=== PATIENT | male | born 1940 | race Caucasian/White ===

== ENCOUNTER 2017-09-05 20:26 | Observation (INO) | payer MEDICARE, OTHER ==
[~2017-09-05] VITALS: Ht 169.5 cm; Wt 50.8 kg
[~2017-09-05 20:26] MED LIST: ACIP20TA19 PO; ADVA250A INH; AGGR20025 PO; FERR324T4 PO; PRAV40TA PO; bystolic PO
[2017-09-05 20:29] VITALS: BP 151/60; PULSE 73; RESP 18; TEMP 98.3; O2SAT 96
[2017-09-05 20:40] VITALS: O2SAT 95
--- NOTE | 2017-09-05 21:04 | PD ---
HPI Chief Complaint: Respiratory Symptoms Time Seen by Provider: 20:55 Travel History International Travel<30 days: No Contact w/Intl Traveler<30days: No Traveled to known affect area: No History of Present Illness HPI 77-year-old male came to the emergency room brought by EMS for shortness of breath and chest pain on and off since this morning. Patient has history of COPD as well as coronary artery disease. Patient had a CABG about 5-6 years ago. He continues to be a smoker. Patient took his breathing treatments in the morning and felt little better but then the pain and shortness of breath came back in the afternoon. Patient describes this pain on the left side of his chest without any radiation. No aggravating or relieving factors has been identified. Pain is like a pressure. His cellular equipment installer is Dr. Ritchie. Patient usually goes to [facility] a new [place] but he was told that the hospital was very busy and hence he was brought to this emergency room. Currently patient is chest pain-free and vital signs are stable. He does not appear to be in significant shortness of breath. Patient drinks 2 beers every night. Patient took aspirin today but does not know how much. PFSH Past Medical History Narrative Medical List of his past medical, surgical, social and family history reviewed from the nursing note. Blood Disorders: Yes (DUE TO BLOOD THINNER) Cancer: No Cardiovascular Problems: Yes High Cholesterol: Yes Cerebrovascular Accident: Yes (SEVERAL) Diabetes: No Endocrine: No Gastrointestinal Disorders: Yes Genitourinary: No Hepatitis: No Hiatal Hernia: No Hypertension: Yes Immune Disorder: No Implanted Vascular Access Dvce: Yes (pacemaker) Medical other: Yes (arthritis) Musculoskeletal: Yes Neurologic: Yes Psychiatric: No Reproductive: No Respiratory: Yes (DENIES PROBS BUT TAKES NEBULIZERS) Thyroid Disease: No Ulcer: Yes Tetanus Vaccination: > 5 Years Influenza Vaccination: No Past Surgical History Cardiac Surgery: Yes (Quad bypass; pacemaker) Eye Surgery: Yes (LEFT CATARACT EXTRACT) Pacemaker: Yes Other Surgery: Yes Social History Alcohol Use: Yes (daily) Tobacco Use: Yes (2-3 ppd) Substance Use: No Allergies-Medications (Allergen,Severity, Reaction): Coded Allergies: No Known Allergies (Verified Allergy, Unknown, 09/05/17) Comments No known drug allergies. Reported Meds & Prescriptions Reported Meds & Active Scripts Active Narrative Medication List of his home medications reviewed from the nursing note. Review of Systems Except as stated in HPI: all other systems reviewed are Neg Cardiovascular: Positive: Chest Pain or Discomfort Respiratory: Positive: Shortness of Breath Physical Exam Narrative GENERAL: Awake, alert, no obvious distress SKIN: Focused skin assessment warm/dry. HEAD: Atraumatic. Normocephalic. EYES: Pupils equal and round. No scleral icterus. No injection or drainage. ENT: No nasal bleeding or discharge. Mucous membranes pink and moist. NECK: Trachea midline. No JVD. CARDIOVASCULAR: Regular rate and rhythm. No murmur appreciated. RESPIRATORY: No accessory muscle use. Clear to auscultation. Breath sounds equal bilaterally. GASTROINTESTINAL: Abdomen soft, non-tender, nondistended. Hepatic and splenic margins not palpable. MUSCULOSKELETAL: No obvious deformities. No clubbing. No cyanosis. No edema. NEUROLOGICAL: Awake and alert. No obvious cranial nerve deficits. Motor grossly within normal limits. Normal speech. PSYCHIATRIC: Appropriate mood and affect; insight and judgment normal. Data Data Last Documented VS Vital Signs Date Time Temp Pulse Resp B/P (MAP) Pulse Ox O2 Delivery O2 Flow Rate FiO2 09/05/17 21:30 96 21 09/05/17 20:40 Nasal Cannula 2.00 09/05/17 20:29 98.3 73 18 151/60 (90) Orders Orders Complete Blood Count With Diff (09/05/17 21:13) Basic Metabolic Panel (Bmp) (09/05/17 21:13) B-Type Natriuretic Peptide (09/05/17 21:13) Magnesium (Mg) (09/05/17 21:13) Troponin I (09/05/17 21:13) Iv Access Insert/Monitor (09/05/17 21:13) Electrocardiogram (09/05/17 21:13) Ecg Monitoring (09/05/17 21:13) Oximetry (09/05/17 21:13) Oxygen Administration (09/05/17 21:13) Chest, Single Ap (09/05/17 21:13) Sodium Chloride 0.9% Flush (Ns Flush) (09/05/17 21:15) Methylprednisolone So Succ Inj (Solumedr (09/05/17 21:15) Albuterol-Ipratropium Neb (Duoneb Neb) (09/05/17 21:15) Place In Observation (09/05/17 ) Vital Signs (Adult) Q4H (09/05/17 22:10) Activity Oob With Assistance (09/05/17 22:10) Sodium Chloride 0.9% Flush (Ns Flush) (09/05/17 22:15) Sodium Chloride 0.9% Flush (Ns Flush) (09/06/17 09:00) Acetaminophen (Tylenol) (09/05/17 23:00) Ondansetron Inj (Zofran Inj) (09/05/17 23:00) Basic Metabolic Panel (Bmp) (09/06/17 06:00) Complete Blood Count With Diff (09/06/17 06:00) Troponin I (09/06/17 03:00) Troponin I (09/06/17 09:00) Resp Oxygen Matthew C Titrat 1-4 L (09/05/17 ) Heparin Inj (Heparin Inj) (09/05/17 23:00) Naloxone Inj (Narcan Inj) (09/05/17 22:15) Docusate Sodium-Senna (Wandy-Colace) (09/06/17 09:00) Magnesium Hydroxide Liq (Milk Of Magnesi (09/05/17 23:00) Sennosides (Senokot) (09/05/17 23:00) Bisacodyl Supp (Dulcolax Supp) (09/05/17 23:00) Lactulose Liq (Lactulose Liq) (09/05/17 23:00) Admit Order (Ed Use Only) (09/05/17 22:13) Creatine Kinase (Cpk) (09/06/17 09:00) Creatine Kinase (Cpk) (09/06/17 03:40) Labs Laboratory Tests Test 09/05/17 21:19 White Blood Count 8.6 TH/MM3 Red Blood Count 5.19 MIL/MM3 Hemoglobin 15.8 GM/DL Hematocrit 47.5 % Mean Corpuscular Volume 91.6 FL Mean Corpuscular Hemoglobin 30.5 PG Mean Corpuscular Hemoglobin Concent 33.3 % Red Cell Distribution Width 13.0 % Platelet Count 173 TH/MM3 Mean Platelet Volume 8.1 FL Neutrophils (%) (Auto) 65.7 % Lymphocytes (%) (Auto) 22.8 % Monocytes (%) (Auto) 9.1 % Eosinophils (%) (Auto) 1.2 % Basophils (%) (Auto) 1.2 % Neutrophils # (Auto) 5.6 TH/MM3 Lymphocytes # (Auto) 2.0 TH/MM3 Monocytes # (Auto) 0.8 TH/MM3 Eosinophils # (Auto) 0.1 TH/MM3 Basophils # (Auto) 0.1 TH/MM3 CBC Comment DIFF FINAL Differential Comment Blood Urea Nitrogen 33 MG/DL Creatinine 1.80 MG/DL Random Glucose 97 MG/DL Calcium Level 9.6 MG/DL Magnesium Level 2.2 MG/DL Sodium Level 137 MEQ/L Potassium Level 4.2 MEQ/L Chloride Level 104 MEQ/L Carbon Dioxide Level 23.1 MEQ/L Anion Gap 10 MEQ/L Estimat Glomerular Filtration Rate 37 ML/MIN Troponin I 0.05 NG/ML B-Type Natriuretic Peptide 121 PG/ML MDM Medical Decision Making Medical Screen Exam Complete: Yes Emergency Medical Condition: Yes Medical Record Reviewed: Yes Interpretation(s) Twelve-lead EKG was reviewed by me. Paced rhythm. Heart rate of 68 bpm. Differential Diagnosis CAD, congestive heart failure, COPD exacerbation Narrative Course 10:09 PM blood test results are back and within acceptable limits. Given patient's on and off chest pain and history of coronary artery disease I would like to admit him to rule out ACS. Awaiting for the hospitalist to call back. Procedures EKG Prior to Arrival: No Diagnosis Primary Impression: Chest pain Qualified Codes: R07.9 - Chest pain, unspecified Additional Impression: Shortness of breath Admitting Information Admitting Physician Requests: Observation Scripts Aspirin (Aspirin) 325 Mg Tab 325 MG PO DAILY for cad for 30 Days, #30 TAB 0 Refills Prov: Maylin Syed 09/06/17 Levothyroxine (Levothyroxine) 75 Mcg Tab 75 MCG PO DAILY for Thyroid for 30 Days, #30 TAB 0 Refills Prov: Maylin Syed 09/06/17 Carvedilol (Carvedilol) 3.125 Mg Tab 3.125 MG PO BID for 30 Days, #60 TAB 0 Refills Prov: Maylin Syed 09/06/17 Metoprolol Tartrate (Lopressor) 50 Mg Tab 25 MG PO BID for CAD for 30 Days, #30 TAB 0 Refills Prov: Maylin Syed 09/06/17 Guaifenesin ER (Mucus Relief ER) 600 Mg Tab 600 MG PO BID Y for CHEST CONGESTION AND/OR COUGH for 7 Days, #14 TAB 0 Refills Prov: Maylin Syed 09/06/17 Azithromycin (Azithromycin) 500 Mg Tab 500 MG PO DAILY for Infection for 5 Days, #5 TAB 0 Refills Prov: Maylin Syed 09/06/17 Prednisone (21) 10 mg tab Dose Pack (Prednisone (21) 10 mg tab Dose Pack) 10 Mg Pack 10 MG PO DIRECTED for Inflammation, #1 DSPK 0 Refills Prov: Maylin Syed 09/06/17 Alessio Holman MD Sep 05, 2017 21:04
[2017-09-05] MEDS ORDERED: methylPREDNISolone SOD SUCC 125 MG/2 ML VIAL IV PUSH ONE (21:15)
[2017-09-05] MEDS ORDERED: SODIUM CHLORIDE 0.9% FLUSH 10 ML FLUSH IVF PRN (21:15)
[2017-09-05 21:29] LABS: AUTOMATED NEUTROPHIL # 5.6 TH/MM3 (1.8-7.7); BASOPHIL # 0.1 TH/MM3 (0-0.2); BASOPHIL % 1.2 % (0.0-2.0); EOSINOPHIL # 0.1 TH/MM3 (0-0.4); EOSINOPHIL % 1.2 % (0.0-4.0); HEMATOCRIT 47.5 % (39.0-51.0); HEMOGLOBIN 15.8 GM/DL (13.0-17.0); LYMPH % 22.8 % (9.0-44.0); MEAN CELL VOLUME 91.6 FL (80.0-100.0); MEAN CORPUSCULAR HEMOGLOBIN 30.5 PG (27.0-34.0); MEAN CORPUSCULAR HGB CONC 33.3 % (32.0-36.0); MEAN PLATELET VOLUME 8.1 FL (7.0-11.0); MONO % 9.1 % (0.0-8.0); MONOCYTE # 0.8 TH/MM3 (0-0.9); NEUT % 65.7 % (16.0-70.0); PLATELET COUNT 173 TH/MM3 (150-450); RED BLOOD COUNT 5.19 MIL/MM3 (4.50-5.90); WHITE BLOOD COUNT 8.6 TH/MM3 (4.0-11.0)
[2017-09-05 21:30] VITALS: O2SAT 96
[2017-09-05] MEDS: RESP: ALBUTEROL 2.5 MG/IPRATROPIUM 0.5 MG NEB (SCH) INH (21:31)
--- NOTE | 2017-09-05 21:37 | RADRPT ---
EXAM DATE/TIME: 09/05/2017 21:15 [facility] COMPARISON: No previous studies available for comparison. INDICATIONS : Short of breath. MEDICAL HISTORY : None. SURGICAL HISTORY : CABG. Pacemaker. ENCOUNTER: Initial ACUITY: 1 day PAIN SCORE: 0/10 LOCATION: Bilateral chest FINDINGS: A single view of the chest demonstrates the lungs to be symmetrically aerated without evidence of mas s, infiltrate or effusion. Pacemaker on the left. The cardiomediastinal contours are unremarkable. Osseous structures are intact. CONCLUSION: No acute disease. Jonathan Chaudhary MD FACR on September 05, 2017 at 21:30 Board Certified Radiologist. This report was verified electronically.
[2017-09-05 21:41] LABS: CALCIUM 9.6 MG/DL (8.5-10.1)
[2017-09-05 21:42] LABS: BICARBONATE 23.1 MEQ/L (21.0-32.0); MAGNESIUM 2.2 MG/DL (1.5-2.5)
[2017-09-05 21:45] LABS: CREATININE 1.8 MG/DL (0.60-1.30)
[2017-09-05 21:50] LABS: TROPONIN I 0.05 NG/ML (0.02-0.05)
[2017-09-05] MEDS ORDERED: NALOXONE HCL 0.4 MG/ML AMP IV PUSH PRN (22:15)
[2017-09-05] MEDS ORDERED: SODIUM CHLORIDE 0.9% FLUSH 10 ML FLUSH IV FLUSH PRN (22:15)
[2017-09-05 22:33] VITALS: BP 125/68; PULSE 75; RESP 16; O2SAT 98
[2017-09-05] MEDS: HEPARIN SODIUM - SQ 10,000 UNITS/ML VIAL SQ SCH (22:58)
[2017-09-05] MEDS ORDERED: MAGNESIUM HYDROXIDE SUSP 30 ML CUP PO PRN (23:00)
[2017-09-05] MEDS ORDERED: ACETAMINOPHEN 325 MG TAB PO PRN (23:00)
[2017-09-05] MEDS ORDERED: SENNOSIDES 8.6 MG TAB PO PRN (23:00)
[2017-09-05] MEDS ORDERED: BISACODYL 10 MG SUPP RECTAL PRN (23:00)
[2017-09-05] MEDS ORDERED: ONDANSETRON HCL 4 MG/2 ML VIAL IVP PRN (23:00)
[2017-09-05] MEDS ORDERED: LACTULOSE SYRUP 20 GM/30 ML CUP PO PRN (23:00)
[2017-09-06] VITALS (8 sets, daily range): BP systolic 143–164; BP diastolic 66–72; PULSE 68–93; RESP 15–20; TEMP 96–98.2; O2SAT 94–98
[2017-09-06 05:11] LABS: TROPONIN I 0.04 NG/ML (0.02-0.05)
[2017-09-06 06:45] LABS: AUTOMATED NEUTROPHIL # 6.2 TH/MM3 (1.8-7.7); BASOPHIL % 0.4 % (0.0-2.0); EOSINOPHIL % 0.2 % (0.0-4.0); HEMATOCRIT 45.9 % (39.0-51.0); HEMOGLOBIN 15.9 GM/DL (13.0-17.0); LYMPH % 6.9 % (9.0-44.0); LYMPHOCYTE # 0.5 TH/MM3 (1.0-4.8); MEAN CELL VOLUME 92.3 FL (80.0-100.0); MEAN CORPUSCULAR HEMOGLOBIN 31.9 PG (27.0-34.0); MEAN CORPUSCULAR HGB CONC 34.5 % (32.0-36.0); MEAN PLATELET VOLUME 8.4 FL (7.0-11.0); MONO % 0.3 % (0.0-8.0); NEUT % 92.2 % (16.0-70.0); PLATELET COUNT 162 TH/MM3 (150-450); RED BLOOD COUNT 4.97 MIL/MM3 (4.50-5.90); RED CELL DISTRIBUTION WIDTH 13.5 % (11.6-17.2); WHITE BLOOD COUNT 6.7 TH/MM3 (4.0-11.0)
[2017-09-06 06:56] LABS: CALCIUM 9.4 MG/DL (8.5-10.1)
[2017-09-06 07:00] LABS: CREATININE 1.7 MG/DL (0.60-1.30)
--- NOTE | 2017-09-06 08:19 | HHI.HP ---
[facility] Physician Unknown Admission Diagnosis Chest pain, shortness of breath Diagnoses: (1) Chest pain (2) Shortness of breath Chief Complaint: Chest pain Travel History International Travel<30 Days: No Contact w/Intl Traveler <30 Da: No Traveled to Known Affected Are: No History of Present Illness This is a pleasant 77-year-old male patient with a known medical history of CAD with history of CABG, COPD with tobaccoism, history of CVA, hyperlipidemia and pacemaker who presented to the ED with complaints of dyspnea and chest pain. Patient states that yesterday morning as he was getting out of bed in the morning he developed a left-sided chest ache. He states that the pain came on suddenly was characterizes aching in nature and intermittent, lasted 2 hours and finally subsided when EVAC arrived to his home. Patient states the pain was a 5 out of 10 at its worst pain scale. Denies any associated nausea, vomiting or diaphoresis. Does admit to associated shortness of breath. Patient states that he did attempt to take a breathing treatment in the morning as well as aspirin, states that he felt a little better but the chest pain continued to come and go throughout the morning. Patient does follow with the manager financial planning Dr. Ritchie, was last seen 1 month ago with no changes in medicines and reportedly doing well. At the time of assessment patient is lying comfortably in bed with no chest pain at the time. Slept well with no reports of any acute events overnight. Dyspnea has improved. Patient does admit to smoking 2 packs per day of cigarettes since the age of 16. P[address] Jamaal Canales in [place]. Does not follow with the labor training manager. Both maternal and paternal medical history significant for ME. Patient does not remember ever undergoing a nuclear stress test, states that he did undergo a treadmill cardiac stress test roughly 15 years ago which was reportedly negative. Chest x-ray on presentation is negative. EKG showing paced rhythm. Troponin trend flat at the time. Blood pressure mildly elevated. Review of Systems Constitutional: DENIES: Fatigue, Fever, Chills Eyes: DENIES: Blurred vision, Diplopia Respiratory: COMPLAINS OF: Cough, Shortness of breath, DENIES: Sputum production Cardiovascular: COMPLAINS OF: Chest pain, Palpitations Gastrointestinal: DENIES: Abdominal pain, Black stools, Bloody stools, Constipation, Diarrhea, Nausea, Vomiting Musculoskeletal: DENIES: Joint pain Neurologic: DENIES: Abnormal gait Except as stated in HPI: all other systems reviewed are Neg Past Family Social History Past Medical History CAD with history of quadruple bypass Tobaccoism COPD Hyperlipidemia Hypertension History of CVA Pacemaker placement Arthritis GERD Past Surgical History Quadruple bypass Bilateral cataract Pacemaker placement Unspecified back surgery Left endarterectomy Allergies: Coded Allergies: No Known Allergies (Verified Allergy, Unknown, 09/05/17) Active Ordered Medications Current Medications Medications (Trade) Dose Ordered Sig/Edyta Route Start Time Stop Time Status Last Admin (NS Flush) 2 ml UNSCH PRN IV FLUSH 09/05/17 22:15 (NS Flush) 2 ml BID IV FLUSH 09/06/17 09:00 (Tylenol) 650 mg Q4H PRN PO 09/05/17 23:00 (Zofran Inj) 4 mg Q6H PRN IVP 09/05/17 23:00 (Heparin Inj) 5,000 units Q12H SQ 09/05/17 23:00 09/05/17 22:58 (Narcan Inj) 0.4 mg UNSCH PRN IV PUSH 09/05/17 22:15 (Wandy-Colace) 1 tab BID PO 09/06/17 09:00 (Milk Of Magnesia Liq) 30 ml Q12H PRN PO 09/05/17 23:00 (Senokot) 17.2 mg Q12H PRN PO 09/05/17 23:00 (Dulcolax Supp) 10 mg DAILY PRN RECTAL 09/05/17 23:00 (Lactulose Liq) 30 ml DAILY PRN PO 09/05/17 23:00 Family History Both maternal and paternal medical history significant for ME, father was age 79 mother was age 95. Social History Patient does admit to smoking 2 packs per day of cigarettes since age of 16. Does admit to drinking 2 beers a day. Denies any illicit drug use. Physical Exam Vital Signs Vital Signs Date Time Temp Pulse Resp B/P (MAP) Pulse Ox O2 Delivery O2 Flow Rate FiO2 09/06/17 05:15 97.0 75 18 162/71 (101) 96 09/06/17 01:00 96.0 70 20 161/69 (99) 97 09/05/17 22:33 75 16 125/68 (87) 98 Room Air 2.00 09/05/17 21:30 96 21 09/05/17 20:40 97 Nasal Cannula 2.00 09/05/17 20:40 95 Nasal Cannula 2.00 09/05/17 20:34 Room Air 09/05/17 20:29 98.3 73 18 151/60 (90) 96 Physical Exam GENERAL: Well-developed, well-nourished patient in NAD. SKIN: Warm and dry. No rash. HEAD: Normocephalic. Atraumatic. EYES: Pupils equal and round. No scleral icterus. No injection or drainage. ENT: No nasal bleeding or discharge. Mucous membranes pink and moist. NECK: Supple. Trachea midline. CARDIOVASCULAR: Regular rate and rhythm. S1, S2 noted. No murmur appreciated. No chest pain to palpation RESPIRATORY: No accessory muscle use. Clear to auscultation. Breath sounds equal bilaterally. GASTROINTESTINAL: Abdomen soft, non-tender, nondistended. Normoactive bowel sounds x4. MUSCULOSKELETAL: No obvious deformities. Extremities without clubbing, cyanosis , or edema. NEUROLOGICAL: Awake and alert. No obvious cranial nerve deficits. Motor grossly within normal limits. 5/5 muscle strength in bilateral upper and lower extremities. Normal speech. PSYCHIATRIC: Appropriate mood and affect; insight and judgment normal. Laboratory Laboratory Tests Test 09/05/17 21:19 09/06/17 03:40 09/06/17 05:10 White Blood Count 8.6 6.7 Red Blood Count 5.19 4.97 Hemoglobin 15.8 15.9 Hematocrit 47.5 45.9 Mean Corpuscular Volume 91.6 92.3 Mean Corpuscular Hemoglobin 30.5 31.9 Mean Corpuscular Hemoglobin Concent 33.3 34.5 Red Cell Distribution Width 13.0 13.5 Platelet Count 173 162 Mean Platelet Volume 8.1 8.4 Neutrophils (%) (Auto) 65.7 92.2 Lymphocytes (%) (Auto) 22.8 6.9 Monocytes (%) (Auto) 9.1 0.3 Eosinophils (%) (Auto) 1.2 0.2 Basophils (%) (Auto) 1.2 0.4 Neutrophils # (Auto) 5.6 6.2 Lymphocytes # (Auto) 2.0 0.5 Monocytes # (Auto) 0.8 0.0 Eosinophils # (Auto) 0.1 0.0 Basophils # (Auto) 0.1 0.0 CBC Comment DIFF FINAL DIFF FINAL Differential Comment Blood Urea Nitrogen 33 33 Creatinine 1.80 1.70 Random Glucose 97 151 Calcium Level 9.6 9.4 Magnesium Level 2.2 Sodium Level 137 137 Potassium Level 4.2 4.5 Chloride Level 104 105 Carbon Dioxide Level 23.1 21.0 Anion Gap 10 11 Estimat Glomerular Filtration Rate 37 39 Troponin I 0.05 0.04 B-Type Natriuretic Peptide 121 Total Creatine Kinase 54 Result Diagram: 09/06/17 0510 09/06/17509 Imaging Last Impressions Chest X-Ray 09/05/172112 Signed Impressions: Service Date/Time: Tuesday, September 05, 2017 21:15 - CONCLUSION: No acute disease. Jonathan Chaudhary MD FACR Septic Shock Reassessment Septic shock perfusion: reassessment completed Caprini VTE Risk Assessment Caprini VTE Risk Assessment: Mod/High Risk (score >= 2) Caprini Risk Assessment Model Point Value = 1 Point Value = 2 Point Value = 3 Point Value = 5 Age 41-60 Minor surgery BMI > 25 kg/m2 Swollen legs Varicose veins or History of unexplained or recurrent spontaneous Oral contraceptives or hormone replacement Sepsis (< 1 month) Serious lung disease, including pneumonia (< 1 month) Abnormal pulmonary function Acute myocardial infarction Congestive heart failure (< 1 month) History of inflammatory bowel disease Medical patient at bed rest Age 61-74 Arthroscopic surgery Major open surgery (> 45 min) Laparoscopic surgery (> 45 min) Malignancy Confined to bed (> 72 hours) Immobilizing plaster cast Central venous access Age >= 75 History of VTE Family history of VTE Factor V Leiden Prothrombin [id number] Lupus anticoagulant Anticardiolipin antibodies Elevated serum homocysteine Heparin-induced thrombocytopenia Other congenital or acquired thrombophilia Stroke (< 1 month) Elective arthroplasty Hip, pelvis, or leg fracture Acute spinal cord injury (< 1 month) Prophylaxis Regimen Total Risk Factor Score Risk Level Prophylaxis Regimen 0-1 Low Early ambulation 2 Moderate Order ONE of the following: *Sequential Compression Device (SCD) *Heparin 5000 units SQ BID 3-4 Higher Order ONE of the following medications: *Heparin 5000 units SQ TID *Enoxaparin/Lovenox 40 mg SQ daily (WT < 150 kg, CrCl > 30 mL/min) *Enoxaparin/Lovenox 30 mg SQ daily (WT < 150 kg, CrCl > 10-29 mL/min) *Enoxaparin/Lovenox 30 mg SQ BID (WT < 150 kg, CrCl > 30 mL/min) AND/OR *Sequential Compression Device (SCD) 5 or more Highest Order ONE of the following medications: *Heparin 5000 units SQ TID (Preferred with Epidurals) *Enoxaparin/Lovenox 40 mg SQ daily (WT < 150 kg, CrCl > 30 mL/min) *Enoxaparin/Lovenox 30 mg SQ daily (WT < 150 kg, CrCl > 10-29 mL/min) *Enoxaparin/Lovenox 30 mg SQ BID (WT < 150 kg, CrCl > 30 mL/min) AND *Sequential Compression Device (SCD) Assessment and Plan Problem List: (1) Chest pain ICD Code: R07.9 - Chest pain, unspecified Status: Acute (2) Shortness of breath ICD Code: R06.02 - Shortness of breath Status: Acute Assessment and Plan This is a pleasant 77-year-old male patient with a known medical history of CAD with history of CABG, COPD with tobaccoism, history of CVA, hyperlipidemia and pacemaker who presented to the ED with complaints of dyspnea and chest pain. Chest pain with associated dyspnea rule out ACS versus musculoskeletal cause - Patient has been admitted for observation. Serial EKGs and serial troponins have been ordered for ruling out ACS purposes. Troponins flat, 0.05, 0.04, 0.02. Chest x-ray negative upon presentation. EKG reviewed showing paced rhythm. Blood pressures are mildly elevated with systolic in the 160s. At the time of assessment patient is lying in bed comfortably with no chest pain at the time. Cardiac telemetry has been continued, reviewed overnight with no arrhythmias noted. Patient will undergo a cardiac stress test if third enzyme is flat, to rule out any further possibility of ischemia. Will keep n.p.o. for now. Further hospitalization and treatment plan will depend on nuclear imaging results. COPD with exacerbation: Patient was given IV steroids in ED as well as duo nebs. Will place on scheduled DuoNeb's and as needed for wheezing and shortness of breath. Supplemental O2 as needed, patient is comfortable on room air. Will place on scheduled IV steroids. Follow clinically. Chronic kidney disease stage 3: Creatinine 1.9 on presentation, after reviewing trends, patient appears to have chronic kidney disease baseline is 1.7. We will continue to monitor. Avoid nephrotoxins. DVT prophylaxis: SCDs. Heparin. Patient underwent cardiac nuclear stress test, results reviewed, EF 64%. Does show prior infarction. No acute ischemia or redistribution no hypokinetic activity. Chest pain has now resolved. This episode was likely related to COPD with exacerbation. Patient has been placed on steroids and antibiotics upon discharge. He does have inhalers and duo nebs at home. Patient does have cough, prescription for Mucinex. Has been comfortable on room air. Will discharge home with recommendations to follow-up with PCP. Patient medication list obtained from PCP office and recommendations to continue prescribed medications. Problem Qualifiers (1) Chest pain: Qualified Codes: R07.9 - Chest pain, unspecified Maylin Syed Sep 06, 2017 08:19
[2017-09-06] MEDS ORDERED: RESP: ALBUTEROL 2.5 MG/IPRATROPIUM 0.5 MG NEB (PRN) NEB (08:30)
[2017-09-06] MEDS ORDERED: SODIUM CHLORIDE 0.9% FLUSH 10 ML FLUSH IV FLUSH SCH (09:00)
[2017-09-06] MEDS ORDERED: DOCUSATE SODIUM 50 MG/SENNA 8.6 MG TAB PO SCH (09:00)
[2017-09-06 11:40] LABS: TROPONIN I 0.02 NG/ML (0.02-0.05)
[2017-09-06] MEDS: HEPARIN SODIUM - SQ 10,000 UNITS/ML VIAL SQ SCH (12:46)
[2017-09-06] MEDS: methylPREDNISolone SOD SUCC 40 MG/1 ML VIAL IV PUSH SCH ×2 (12:46→17:08)
--- NOTE | 2017-09-06 14:14 | RADRPT ---
EXAM DATE/TIME: 09/06/2017 11:19 [facility] COMPARISON: No previous studies available for comparison. INDICATIONS : Left chest pain with dyspnea. Abnormal EKG. DOSE: 25.4 mCi Tc99m Myoview at stress. 8.5 mCi Tc99m Myoview at rest. 0.4 mg Lexiscan STRESS SYMPTOMS: Dyspnea, chest pain, nausea and headache. MEDICATIONS: 1.) 100 mg Aminophylline IV EJECTION FRACTION: 64% MEDICAL HISTORY : Myocardial infarction. Congestive heart failure. Hypercholesterolemia. Hypertension. Smoker. Stroke. SURGICAL HISTORY : Pacemaker. CABG ENCOUNTER: Initial ACUITY: 1 day PAIN SCALE: 6/10 LOCATION: Left chest TECHNIQUE: The patient underwent pharmacologic stress with infusion of prescribed dose. Continuous ECG tracing was monitored during stress. Gated SPECT imaging was performed after stress and conventional SPECT i maging was performed at rest. The examination was performed on a SPECT/CT scanner, both attenuation and non-corrected datasets were reviewed. FINDINGS: DISTRIBUTION: The maximum perfused segment at stress is in the anterobasal wall. PERFUSION STUDY: There is a large fixed perfusion defect involving the apex of the apical segments of the septal, infe rior, and lateral salvador with decrease in perfusion greater than 70%. There is no evidence of redistr ibution. There is are no other or reversible perfusion defects. The summed stress score is 11. GATED STUDY: There is intact wall motion in all the segments except the apical septal segment which demonstrates h ypokinesia. Global ejection fraction is within normal limits at 64%. CONCLUSION: 1. Large fixed perfusion defect involving the apical segments and apex characteristic of old infarcti on. 2. No evidence of stress-induced ischemia. 3. Global ejection fraction is preserved at 64%. RISK CATEGORY: Low (<1% Annual Mortality Rate) Akin Vergara MD on September 06, 2017 at 14:00 Board Certified Radiologist. This report was verified electronically.
--- NOTE | 2017-09-06 14:18 | HHI.DCPOC ---
Discharge Care Plan Diagnosis: (1) Shortness of breath (2) Chest pain Goals to Promote Your Health * To prevent worsening of your condition and complications * To maintain your health at the optimal level Directions to Meet Your Goals Take your medications as prescribed Follow your dietary instruction Follow activity as directed Keep your appointments as scheduled Take your immunizations and boosters as scheduled If your symptoms worsen call your PCP, if no PCP go to Urgent Care Center or Emergency Room Smoking is Dangerous to Your Health. Avoid second hand smoke Call the 24-hour hour crisis hotline for domestic abuse at Maylin Syed Sep 06, 2017 14:18
[2017-09-06] MEDS: RESP: ALBUTEROL 2.5 MG/IPRATROPIUM 0.5 MG NEB (SCH) NEB ×2 (14:45→20:27)
[2017-09-06] MEDS ORDERED: PRED10PA PO (15:20)
[2017-09-06] MEDS ORDERED: GUAI600T11 PO (15:20)
[2017-09-06] MEDS ORDERED: AZIT500T2 PO (15:20)
[2017-09-06] MEDS ORDERED: METO-309 PO (15:38)
[2017-09-06] MEDS ORDERED: LEVO75TA3 PO ×2 (15:38→17:06)
[2017-09-06] MEDS ORDERED: CARV3.12 PO ×2 (15:38→17:06)
[2017-09-06] MEDS ORDERED: ASPI-183 PO ×2 (15:38→17:06)
[2017-09-06] MEDS ORDERED: METOPROLOL TARTRATE 50 MG TAB PO ONE (15:45)
[2017-09-06] MEDS ORDERED: CARVEDILOL 3.125 MG TAB PO ONE (15:45)
[2017-09-06] MEDS ORDERED: METO25TA3 PO (17:06)
[2017-09-06] MEDS ORDERED: REGADENOSON INJ 0.4 MG/5 ML SYR IV ONE (22:14)
[2017-09-06] MEDS ORDERED: AMINOPHYLLINE INJ 250 MG/10 ML VIAL IV ONE (22:14)
--- NOTE | 2017-09-07 15:12 | EKG ---
Date Performed: 09/05/2017 Time Performed: 21:28:03 PTAGE: 77 years EKG: ELECTRONIC ATRIAL PACEMAKER ELECTRONIC VENTRICULAR PACEMAKER ABNORMAL RHYTHM ECG PREVIOUS TRACING : 02/25/2008 10.52 DOCTOR: Fredrick Gutierrez Interpretating Date/Time 09/07/2017 15:11:08
--- NOTE | 2017-09-07 15:12 | EKG ---
Date Performed: 09/06/2017 Time Performed: 03:55:39 PTAGE: 77 years EKG: ELECTRONIC ATRIAL PACEMAKER ELECTRONIC VENTRICULAR PACEMAKER ABNORMAL RHYTHM ECG PREVIOUS TRACING : 09/05/2017 21.28 DOCTOR: Fredrick Gutierrez Interpretating Date/Time 09/07/2017 15:11:03
--- NOTE | 2017-09-07 15:13 | TR ---
Date Performed: 09/06/2017 Time Performed: 11:47:00 DOCTOR: Fredrick Gutierrez DRUG LIST: CLINICAL HISTORY: REASON FOR TEST: Chest pain REASON FOR ENDING: OBSERVATION: CONCLUSION: Lexiscan stress test was performed under standard four minute protocol. Radionuclide was injected one minute prior to ending the test. No electrocardiographic abormalities were present to suggest ischemia. Nuclear imaging and interpretation are pending. COMMENTS: This patient has a paced rhythm results of nuclear scan pending
== END 2017-09-06 20:38 | disposition home or self-care (01) ==
LOC: PHED 20:26 → PHEDA 22:13 → PH3A 09-06 00:33
PROVIDERS: ADMIT Hospitalist; ATTEND Hospitalist
DX: R07.89 Other chest pain (principal); J44.1 Chronic obstructive pulmonary disease with (acute) exacerbation; R06.02 Shortness of breath; I25.10 Atherosclerotic heart disease of native coronary artery without angina pectoris; I12.9 Hypertensive chronic kidney disease with stage 1 through stage 4 chronic kidney disease, or unspecified chronic kidney disease; N18.3 Chronic kidney disease, stage 3 (moderate); E78.00 Pure hypercholesterolemia, unspecified; R94.31 Abnormal electrocardiogram [ECG] [EKG]; K21.9 Gastro-esophageal reflux disease without esophagitis; M19.90 Unspecified osteoarthritis, unspecified site; F17.210 Nicotine dependence, cigarettes, uncomplicated; Z95.0 Presence of cardiac pacemaker; Z95.1 Presence of aortocoronary bypass graft; Z86.73 Personal history of transient ischemic attack (TIA), and cerebral infarction without residual deficits
CPT/HCPCS: 71045; 78452; 80048; 82550; 83735; 83880; 84484; 85025; 93005; 93017; 94640; 94664; 96372; 96374; 96376; 99285; A9502; G0378; J0280; J1644; J2785; J2920; J2930